=== PATIENT | female | born 1965 | race Caucasian/White ===

== ENCOUNTER 2020-02-07 13:32 | Inpatient (IN) ==
[2020-02-07] MEDS ORDERED: ZOFRAN ODT PO PRN (16:15)
[2020-02-07] MEDS ORDERED: IMODIUM PO PRN ×2 (16:15)
[2020-02-07] MEDS ORDERED: NICOTINE GUM BUCCAL PRN (16:15)
[2020-02-07] MEDS ORDERED: ZOFRAN IM PRN (16:15)
[2020-02-07] MEDS ORDERED: NICODERM PATCH TD PRN (16:15)
[2020-02-07] MEDS ORDERED: MAALOX PLUS LIQUID PO PRN (16:15)
[2020-02-07] MEDS ORDERED: D5W 1,000 ML IV PRN (16:15)
[2020-02-07] MEDS ORDERED: SEROQUEL PO PRN (16:15)
[2020-02-07] MEDS ORDERED: ZOFRAN IV PRN (16:15)
[2020-02-07] MEDS ORDERED: TUBERSOL ID ONE (16:15)
[2020-02-07] MEDS ORDERED: DULCOLAX PR PRN (16:15)
[2020-02-07] MEDS ORDERED: PHENOBARBITAL IV PRN (16:15)
[2020-02-07] MEDS ORDERED: SENOKOT PO PRN (16:15)
[2020-02-07 17:09] LABS: AMYLASE 43 U/L (20-200); LIPASE 11 U/L (13-60)
[2020-02-07] MEDS: MOTRIN PO PRN (17:49)
[2020-02-07 18:14] LABS: URINE SOURCE CLEAN CATCH
[2020-02-07 18:22] LABS: BILIRUBIN URINE NEGATIVE (NEGATIVE); BLOOD URINE MODERATE (NEGATIVE); COLOR YELLOW; GLUCOSE URINE NEGATIVE (NEGATIVE); KETONE URINE NEGATIVE (NEGATIVE); LEUKOCYTES URINE TRACE (NEGATIVE); NITRITE URINE NEGATIVE (NEGATIVE); PROTEIN URINE TRACE mg/dL (NEGATIVE); SP GRAVITY URINE 1.027; TURBIDITY URINE CLEAR (CLEAR); UR EPITHELIAL CELLS >10 /HPF (<10); URINE BACTERIA 3+ /HPF; URINE RBC <10 /HPF (<10); URINE WBC <10 /HPF (<10); UROBILINOGEN URINE NORMAL (NORMAL)
[2020-02-07 18:29] LABS: UR AMPHETAMINES QUAL NONE DETECTED (NONE DETECT); UR BARBITUATES QUAL NONE DETECTED (NONE DETECT); UR BENZODIAZEPIN QUAL NONE DETECTED (NONE DETECT); UR CANNABINOIDS QUAL NONE DETECTED (NONE DETECT); UR COCAINE QUAL NONE DETECTED (NONE DETECT); UR METHADONE QUAL NONE DETECTED (NONE DETECT); UR METHAMPHETAMINE QUAL NONE DETECTED (NONE DETECT); UR OPIATES QUAL NONE DETECTED (NONE DETECT); UR OXYCODONE QUAL NONE DETECTED (NONE DETECT); UR PCP QUAL NONE DETECTED (NONE DETECT); UR PROPOXYPHENE QUAL NONE DETECTED (NONE DETECT); UR TCA QUAL NONE DETECTED (NONE DETECT)
[2020-02-07] MEDS ORDERED: SINEMET 25/100 PO PRN (18:30)
[2020-02-07] MEDS ORDERED: ATARAX PO PRN (18:30)
[2020-02-07] MEDS ORDERED: LIBRIUM PO PRN (18:30)
[2020-02-07] MEDS ORDERED: ROBAXIN PO PRN (18:30)
[2020-02-07] MEDS ORDERED: HYDROCHLOROTHIAZIDE PO PRN (18:32)
[2020-02-07 18:43] LABS: HEMATOCRIT 41.1 % (37.0-47.0); MCH 28.1 PG (27-31); MCHC 31.6 g/dL (33-37); MCV 88.8 FL (81-99); MPV 11.1 FL (7.4-10.4); RBC 4.63 XMIL (4.2-5.4); RDW 13.7 % (11.5-14.5); WBC 8.95 X1000 (4.8-10.8)
[2020-02-07 18:45] LABS: INR 0.82; PROTIME 11.7 Seconds (11.0-16.0)
[2020-02-07 18:54] LABS: AGAP 15; ALBUMIN 4.6 g/dL (3.5-5.0); ALKALINE PHOSPHATASE 116 U/L (32-104); BUN 14 mg/dL (8-22); CALCIUM 9.6 mg/dL (8.8-10.2); CHLORIDE 101 mmol/L (98-107); COSMO 281; CREATININE 0.7 mg/dL (0.5-0.9); ESTIMATED GFR > 60; GLUCOSE 94 mg/dL (70-104); GOT 18 U/L (10-30); GPT 16 U/L (10-36); POTASSIUM 4.2 mmol/L (3.5-5.1); SODIUM 141 mmol/L (136-145); TCO2 25 mmol/L (25-35); TOTAL PROTEIN 7.7 g/dL (6.3-8.3)
[2020-02-07] MEDS: NEURONTIN PO SCH (20:02)
--- NOTE | 2020-02-07 22:50 | HISTORY AND PHYSICAL ---
CHIEF COMPLAINT: Nausea and vomiting. HISTORY OF PRESENT ILLNESS: Patient is a 54-year-old female who presented to the hospital with nausea, abdominal pain, myalgias and notes that she has been abusing opiates at times and has had withdrawal symptoms. SOCIAL HISTORY: She is , lives at home in [place], [place]. She is a nurse. REVIEW OF SYSTEMS: CINA score is elevated secondary to abdominal pain, cramping, diarrhea, intermittent hot and cold sensations, mild nausea, mild muscle aches, somewhat restless anxious, mild sweating. Denies any history of suicidal or homicidal ideation. Denies chest pain, palpitations, fevers, chills. Denies dysuria, frequency, urgency, hesitancy, polyuria or polydipsia. PAST MEDICAL HISTORY: Significant for chronic back pain for which she takes Butrans patches, chronic knee pain, back surgery, history of concussion at age 14, chronic neuropathy in her hands and right leg. MEDICATIONS: Maxzide 25, Butrans patch 20 mcg and gabapentin 900 t.i.d. ALLERGIES: Reglan. SUBSTANCE ABUSE HISTORY: Patient notes she has been treated in the past for depression and anxiety, history of drinking starting at age 14, has not drunk in several years. Started marijuana at 28, has not used since then. Started Xanax at 44, only tried a couple of times. Started opiates at 23 and started using regular at 50 secondary to injury. She has been using a patch weekly and has been taking pills up to 4 times a day. Started smoking at 14, currently does not smoke. FAMILY HISTORY: Noncontributory. PHYSICAL EXAMINATION: VITAL SIGNS: Reviewed and stable. GENERAL: Patient is awake, alert, oriented. No current respiratory distress. HEENT: Normocephalic. NECK: Supple. CARDIOVASCULAR: Regular rate. CHEST: Clear. ABDOMEN: Soft. EXTREMITIES: Moves all extremities. No edema. SKIN: Warm and dry. No rashes. ASSESSMENT: 1. Nausea and vomiting. 2. Abdominal pain. 3. Myalgias. 4. Paresthesias. 5. Diarrhea. 6. Opiate abuse, withdrawal and stabilization. 7. Chronic neuropathy due to chronic back pain. PLAN: We are going to continue patient in the hospital, continue symptomatic care, continue counseling. We will follow for withdrawal symptoms. cc: Farshad Cartwright MD
[2020-02-08] MEDS: MOTRIN PO PRN ×2 (00:28→08:47)
[2020-02-08] MEDS: DESYREL PO PRN ×2 (00:28→21:08)
[2020-02-08] MEDS: PROTONIX [NONFORMULARY] PO SCH (06:01)
[2020-02-08] MEDS ORDERED: ATARAX PO PRN (06:50)
[2020-02-08] MEDS: VITAMIN B-1 PO SCH (08:36)
[2020-02-08] MEDS: THERA M PLUS PO SCH (08:37)
[2020-02-08] MEDS: NEURONTIN PO SCH ×3 (08:46→21:07)
[2020-02-08] MEDS: FOLIC ACID PO SCH (08:47)
[2020-02-08] MEDS ORDERED: SUBOXONE 2 MG/0.5 MG FILM SL PRN (10:07)
--- NOTE | 2020-02-08 10:47 | PROGRESS NOTE ---
DATE: 02/08/2020 SUBJECTIVE: Patient notes overall she is feeling okay. She still has headaches. She still has abdominal cramping and some diarrhea. Symptoms appear to be improving. PHYSICAL EXAMINATION: Vital Signs: Reviewed. General: She is awake and alert. She is in no current respiratory distress. HEENT: Normocephalic. Neck: Supple. Cardiovascular: Regular rate. Lungs: Chest clear and nonlabored. Abdomen: Soft. Extremities: Moves all extremities. ASSESSMENT: 1. Nausea and vomiting. 2. Abdominal pain. 3. Myalgias. 4. Paresthesias. 5. Diarrhea. 6. Opiate abuse withdrawal and stabilization. PLAN: We will continue patient in the hospital. Continue to wean as tolerated. cc: Farshad Cartwright MD
[2020-02-08] MEDS: TYLENOL PO PRN ×2 (11:51→18:31)
[2020-02-08] MEDS: BENTYL PO PRN (11:51)
[2020-02-09] MEDS: PROTONIX [NONFORMULARY] PO SCH (06:28)
[2020-02-09] MEDS: VITAMIN B-1 PO SCH (10:36)
[2020-02-09] MEDS: NEURONTIN PO SCH ×3 (10:36→21:34)
[2020-02-09] MEDS: THERA M PLUS PO SCH (10:36)
[2020-02-09] MEDS: FOLIC ACID PO SCH (10:36)
[2020-02-09] MEDS: MOTRIN PO PRN (19:44)
[2020-02-09] MEDS: DESYREL PO PRN (21:34)
[2020-02-10] MEDS: PROTONIX [NONFORMULARY] PO SCH (06:15)
[2020-02-10 08:01] VITALS: BP 156/77
[2020-02-10] MEDS ORDERED: PNEUMOVAX 23 IM ONE (08:39)
[2020-02-10] MEDS: NEURONTIN PO SCH (09:35)
[2020-02-10] MEDS: THERA M PLUS PO SCH (09:36)
[2020-02-10] MEDS: FOLIC ACID PO SCH (09:36)
[2020-02-10] MEDS: VITAMIN B-1 PO SCH (09:36)
[2020-02-10] MEDS: MOTRIN PO PRN (09:36)
[2020-02-10] MEDS: BENTYL PO PRN (10:12)
--- NOTE | 2020-02-10 18:17 | PROGRESS NOTE ---
DATE: 02/10/2020 SUBJECTIVE: Patient has no new complaints. She states overall she is feeling okay. Denies any fevers or chills. PHYSICAL EXAMINATION: Vital Signs: Reviewed and stable. General: Patient is awake and alert in no distress. HEENT: Normocephalic. Neck: Supple. Cardiovascular: Regular rate. Chest: Clear. Abdomen: Soft. Extremities: Moves all extremities. ASSESSMENT: 1. Nausea and vomiting. 2. Abdominal pain. 3. Myalgias. 4. Paresthesias. 5. Opiate abuse withdrawal and stabilization. PLAN: We will continue patient in hospital. Continue symptomatic care. Continue counseling. Further orders as needed. Hopefully, to rehab tomorrow if bed is available. cc: Farshad Cartwright MD
--- NOTE | 2020-02-10 19:25 | DISCHARGE SUMMARY ---
ADMISSION DATE: 02/07/2020 DISCHARGE DATE: 02/10/2020 DISCHARGE DIAGNOSIS: 1. Nausea and vomiting. 2. Abdominal pain. 3. Myalgias. 4. Opiate abuse withdrawal and stabilization. CONSULTATIONS: None. PROCEDURES: None. BRIEF HOSPITAL COURSE: The patient is a 54-year-old female who presented to the hospital, treated in the usual fashion, and placed on symptomatic protocol. Counseling was performed each day. On discharge, she is awake, alert. She is in no distress. DISPOSITION: The patient will be discharged to further inpatient treatment for substance abuse. She will continue to follow their guidelines. No discharge medications were needed on discharge. Greater than 30 minutes. cc: Farshad Cartwright MD
== END 2020-02-10 10:29 | disposition home or self-care (01) | DRG 897 ==
LOC: EDBD 14:03 → P.DIRADM 14:03 → P.MEDSURG 14:30
PROVIDERS: ADMIT Family Medicine; ATTEND Family Medicine